=== PATIENT | female | born 1990 | race Caucasian/White ===

== ENCOUNTER 2020-06-15 04:41 | Inpatient (IN) ==
[2020-06-15 06:23] LABS: ABS Eosinophils 0.1 10^3/ul (0-0.6); ABS Monocytes 0.6 10^3/ul (0-0.8); ABS Neutrophils 4.8 10^3/ul (1.5-7.7); Eosinophil % 1.1 %; Hematocrit 40 % (35-47); Hemoglobin 13.8 g/dL (12.0-16.0); Lymphocyte % 27.2 %; Mean Corpuscular HGB Conc 34 g/dL (31-36); Mean Corpuscular Hemoglobin 31 pg (27-31); Mean Corpuscular Volume 89 fL (80-97); Mean Platelet Volume 7.7 fL (7.4-10.4); Platelet Count 316 10^3/uL (150-450); Red Blood Count 4.52 10^6 /uL (3.70-4.87); Red Cell Distribution Width 14 % (10-15); White Blood Count 7.5 10^3/uL (3.5-10.8)
[2020-06-15 06:25] LABS: Urine Appearance Cloudy; Urine Bilirubin Negative (Negative); Urine Blood 2+ (Negative); Urine Color Yellow; Urine Glucose Negative (Negative); Urine Ketones 1+ (Negative); Urine Nitrite Positive (Negative); Urine Protein Negative (Negative); Urine Specific Gravity 1.017 (1.010-1.030); Urine Urobilinogen Negative (Negative)
[2020-06-15 06:37] LABS: ALT 20 U/L (7-52); AST 23 U/L (13-39); Albumin 4.4 g/dL (3.2-5.2); Albumin/Globulin Ratio 1.3 (1-3); Alkaline Phosphatase 53 U/L (34-104); Anion Gap 7 mmol/L (2-11); Blood Urea Nitrogen 15 mg/dL (6-24); CO2 Carbon Dioxide 25 mmol/L (22-32); Chloride 103 mmol/L (101-111); EGFR African American 108.4 (>60); EGFR Non-African American 89.6 (>60); Globulin 3.3 g/dL (2-4); Glucose 128 mg/dL (70-100); Potassium 3.7 mmol/L (3.5-5.0); Sodium 135 mmol/L (135-145); Total Protein 7.7 g/dL (6.4-8.9)
[2020-06-15 06:45] LABS: Acetaminophen < 15 mcg/mL; Alcohol, S < 10 mg/dL (<10); Salicylate < 2.50 mg/dL (<30)
[2020-06-15 06:54] LABS: TSH Ultra Thyroid Stim Horm 2.03 mcIU/mL (0.34-5.60)
[2020-06-15 07:02] LABS: Urine Benzodiazepine Screen None Detected (None Detect); Urine Cannabinoids Screen None Detected (None Detect); Urine Opiates Screen None Detected (None Detect)
[2020-06-15 07:11] LABS: Urine Bacteria Absent (Absent); Urine Red Blood Cell 3+(>10/hpf) (Absent); Urine Squamous Epithelial Cell Present (Absent); Urine White Blood Cell Trace(0-5/hpf) (Absent)
[2020-06-15] MEDS ORDERED: LORazepam 2 mg VIAL 1 ml IM ONE (18:52)
[2020-06-15] MEDS ORDERED: diPHENhydraMINE IV 50 MG/ML 1 ml VIAL (BENADRYL) IM ONE (18:52)
[2020-06-15] MEDS ORDERED: Haloperidol 5 mg/ml SDV IV/IM 5 MG/ML AMP IM ONE (18:52)
[2020-06-15] MEDS ORDERED: Haloperidol 5 mg/ml SDV IV/IM 5 MG/ML AMP ONE (18:57)
[2020-06-15] MEDS ORDERED: diPHENhydraMINE IV 50 MG/ML 1 ml VIAL (BENADRYL) ONE (18:57)
[2020-06-15] MEDS ORDERED: LORazepam 2 mg VIAL 1 ml ONE (18:58)
[2020-06-16] MEDS ORDERED: Influenza VAC *QUAD* 2020-21* 0.5 ML SYRINGE IM ONE (09:00)
[2020-06-17] MEDS: OLANzapine 5 mg TAB*ODT PO SCH (11:21)
[2020-06-17] MEDS: Nicotine PATCH 14 MG/24 HR PATCH TRANSDERM SCH (16:15)
[2020-06-18] MEDS: OLANzapine 5 mg TAB*ODT PO SCH (08:32)
[2020-06-18] MEDS: Nicotine PATCH 14 MG/24 HR PATCH TRANSDERM SCH ×2 (08:33→14:30)
[2020-06-18 08:57] LABS: HDL Cholesterol 43.7 mg/dL
[2020-06-18 11:55] LABS: Hepatitis B Surface Antigen Nonreactive (Nonreactive)
[2020-06-18 12:00] LABS: Hepatitis A Ab IgM Negative (Negative)
[2020-06-18 12:01] LABS: Hepatitis B Core IgM Nonreactive (Nonreactive)
[2020-06-18 12:04] LABS: HIV 4th Generation Nonreactive (Nonreactive)
[2020-06-18 12:37] LABS: Hepatitis C Antibody Reactive (Negative)
[2020-06-18 13:53] LABS: Urine Benzodiazepine Screen None Detected (None Detect); Urine Buprenorphine Screen Presumptive Positive (None Detect); Urine Cannabinoids Screen None Detected (None Detect); Urine Fentanyl Screen None Detected (None Detect); Urine Hydrocodone Screen None Detected (None Detect); Urine Opiates Screen None Detected (None Detect)
[2020-06-19] MEDS: Nicotine PATCH 14 MG/24 HR PATCH TRANSDERM SCH (11:14)
[2020-06-19] MEDS ORDERED: Saline NASAL SPRAY 0.65% BTL BOTH NARES PRN (16:06)
[2020-06-20] MEDS: Nicotine PATCH 14 MG/24 HR PATCH TRANSDERM SCH (07:49)
[2020-06-20] MEDS: Nicotine GUM 2MG FRUIT FLAVOR PO PRN ×3 (09:24→17:00)
[2020-06-20] MEDS: Multivitamins/Minerals TAB PO SCH (12:28)
[2020-06-21] MEDS: Nicotine PATCH 14 MG/24 HR PATCH TRANSDERM SCH (08:33)
[2020-06-21] MEDS: Multivitamins/Minerals TAB PO SCH (08:35)
[2020-06-21] MEDS ORDERED: diPHENhydraMINE IV 50 MG/ML 1 ml VIAL (BENADRYL) IM ONE (12:29)
[2020-06-21] MEDS ORDERED: Haloperidol 5 mg/ml SDV IV/IM 5 MG/ML AMP IM ONE (12:30)
[2020-06-21 13:00] LABS: Chlamydia trachomatis NAA Negative (Negative); Neisseria gonorrhoeae (GC) NAA Negative (Negative)
[2020-06-21] MEDS: Nicotine GUM 2MG FRUIT FLAVOR PO PRN ×2 (17:17→20:55)
[2020-06-21] MEDS: OLANzapine 5 mg TAB*ODT PO SCH (20:55)
[2020-06-22] MEDS: Multivitamins/Minerals TAB PO SCH (08:58)
[2020-06-22] MEDS: Nicotine PATCH 14 MG/24 HR PATCH TRANSDERM SCH (08:58)
[2020-06-22] MEDS: Nicotine GUM 2MG FRUIT FLAVOR PO PRN ×2 (08:59→17:46)
[2020-06-22] MEDS: Al Hydrox/Mg Hydrox/Simet LIQ 30 ML UDC PO PRN (14:55)
[2020-06-22] MEDS: OLANzapine 5 mg TAB*ODT PO SCH (20:25)
[2020-06-23] MEDS: Multivitamins/Minerals TAB PO SCH (09:05)
[2020-06-23] MEDS: Nicotine GUM 2MG FRUIT FLAVOR PO PRN ×3 (09:06→14:37)
[2020-06-23] MEDS: Nicotine PATCH 14 MG/24 HR PATCH TRANSDERM SCH (09:06)
[2020-06-23] MEDS ORDERED: buPROPion SR 100 mg TAB.SR PO ONE (10:59)
[2020-06-23] MEDS: Al Hydrox/Mg Hydrox/Simet LIQ 30 ML UDC PO PRN (14:52)
[2020-06-23] MEDS: OLANzapine 5 mg TAB*ODT PO SCH (20:36)
[2020-06-24] MEDS: Nicotine PATCH 14 MG/24 HR PATCH TRANSDERM SCH (08:10)
[2020-06-24] MEDS: Multivitamins/Minerals TAB PO SCH (08:26)
[2020-06-24] MEDS: Nicotine GUM 2MG FRUIT FLAVOR PO PRN ×3 (11:08→19:10)
[2020-06-24] MEDS: Al Hydrox/Mg Hydrox/Simet LIQ 30 ML UDC PO PRN ×2 (14:37→20:25)
[2020-06-24] MEDS: OLANzapine 5 mg TAB*ODT PO SCH (20:52)
[2020-06-25] MEDS: Multivitamins/Minerals TAB PO SCH (08:37)
[2020-06-25] MEDS: Nicotine PATCH 14 MG/24 HR PATCH TRANSDERM SCH (08:43)
[2020-06-25] MEDS: Nicotine GUM 2MG FRUIT FLAVOR PO PRN ×2 (09:27→21:02)
[2020-06-25] MEDS: Al Hydrox/Mg Hydrox/Simet LIQ 30 ML UDC PO PRN (16:00)
[2020-06-25 19:36] LABS: Urine Benzodiazepine Screen None Detected (None Detect); Urine Buprenorphine Screen Presumptive Positive (None Detect); Urine Cannabinoids Screen None Detected (None Detect); Urine Fentanyl Screen None Detected (None Detect); Urine Hydrocodone Screen None Detected (None Detect); Urine Opiates Screen None Detected (None Detect)
[2020-06-25] MEDS: OLANzapine 5 mg TAB*ODT PO SCH (20:57)
[2020-06-26] MEDS: Multivitamins/Minerals TAB PO SCH (08:20)
[2020-06-26] MEDS: Nicotine GUM 2MG FRUIT FLAVOR PO PRN (08:21)
[2020-06-26] MEDS: Nicotine PATCH 14 MG/24 HR PATCH TRANSDERM SCH (09:59)
[2020-06-26] MEDS: OLANzapine 5 mg TAB*ODT PO SCH (21:44)
[2020-06-27] MEDS: Multivitamins/Minerals TAB PO SCH (07:57)
[2020-06-27] MEDS: Nicotine PATCH 14 MG/24 HR PATCH TRANSDERM SCH (08:31)
[2020-06-27] MEDS: Al Hydrox/Mg Hydrox/Simet LIQ 30 ML UDC PO PRN (11:11)
[2020-06-27] MEDS: Nicotine GUM 2MG FRUIT FLAVOR PO PRN (17:36)
[2020-06-27] MEDS: OLANzapine 5 mg TAB*ODT PO SCH (23:19)
[2020-06-28] MEDS: Nicotine PATCH 14 MG/24 HR PATCH TRANSDERM SCH (07:37)
[2020-06-28] MEDS: Multivitamins/Minerals TAB PO SCH (07:38)
[2020-06-28] MEDS: Nicotine GUM 2MG FRUIT FLAVOR PO PRN ×2 (15:10→18:43)
[2020-06-29] MEDS: Multivitamins/Minerals TAB PO SCH (08:13)
[2020-06-29] MEDS: Nicotine PATCH 14 MG/24 HR PATCH TRANSDERM SCH (08:14)
[2020-06-30] MEDS: Multivitamins/Minerals TAB PO SCH (08:02)
[2020-06-30] MEDS: Nicotine PATCH 14 MG/24 HR PATCH TRANSDERM SCH ×2 (08:03→13:09)
[2020-06-30] MEDS: Nicotine GUM 2MG FRUIT FLAVOR PO PRN ×2 (09:43→22:48)
[2020-07-01] MEDS: Nicotine PATCH 14 MG/24 HR PATCH TRANSDERM SCH (08:30)
[2020-07-01] MEDS: Multivitamins/Minerals TAB PO SCH (09:15)
[2020-07-02] MEDS: Multivitamins/Minerals TAB PO SCH (08:36)
[2020-07-02] MEDS: Nicotine PATCH 14 MG/24 HR PATCH TRANSDERM SCH (08:36)
[2020-07-02] MEDS: Nicotine GUM 2MG FRUIT FLAVOR PO PRN ×2 (13:13→18:07)
[2020-07-03] MEDS: Nicotine PATCH 14 MG/24 HR PATCH TRANSDERM SCH ×2 (08:00→11:58)
[2020-07-03] MEDS: Multivitamins/Minerals TAB PO SCH (08:01)
[2020-07-03] MEDS: Nicotine GUM 2MG FRUIT FLAVOR PO PRN (22:42)
[2020-07-04] MEDS: Nicotine PATCH 14 MG/24 HR PATCH TRANSDERM SCH (09:31)
[2020-07-04] MEDS: Multivitamins/Minerals TAB PO SCH (09:59)
[2020-07-04 21:23] VITALS: BP 114/66
[2020-07-05] MEDS: Multivitamins/Minerals TAB PO SCH (08:20)
[2020-07-05] MEDS: Nicotine PATCH 14 MG/24 HR PATCH TRANSDERM SCH (08:20)
== END 2020-07-05 11:30 | disposition home or self-care (01) | DRG 774 ==
LOC: ED 04:41 → BSU 12:23
PROVIDERS: ADMIT Psychiatry & Neurology Psychiatry; ATTEND Psychiatry & Neurology Psychiatry

== ENCOUNTER 2021-04-30 11:55 | Inpatient (IN) ==
[2021-04-30 16:51] LABS: ABS Basophils 0.1 10^3/ul (0-0.2); ABS Eosinophils 0.1 10^3/ul (0-0.6); ABS Monocytes 0.6 10^3/ul (0-0.8); ABS Neutrophils 3.5 10^3/ul (1.5-7.7); Eosinophil % 1.8 %; Hematocrit 39 % (35-47); Hemoglobin 13.3 g/dL (12.0-16.0); Lymphocyte % 41.6 %; Mean Corpuscular HGB Conc 34 g/dL (31-36); Mean Corpuscular Hemoglobin 30 pg (27-31); Mean Corpuscular Volume 88 fL (80-97); Mean Platelet Volume 7.2 fL (7.4-10.4); Nucleated Red Blood Cells % 0.1; Platelet Count 384 10^3/uL (150-450); Red Blood Count 4.43 10^6 /uL (3.70-4.87); Red Cell Distribution Width 15 % (10-15); White Blood Count 7.3 10^3/uL (3.5-10.8)
[2021-04-30 17:08] LABS: ALT 33 U/L (7-52); AST 69 U/L (13-39); Albumin 4.3 g/dL (3.2-5.2); Albumin/Globulin Ratio 1.2 (1-3); Alkaline Phosphatase 67 U/L (35-149); Anion Gap 4 mmol/L (2-11); Blood Urea Nitrogen 8 mg/dL (6-24); CO2 Carbon Dioxide 30 mmol/L (22-32); Calcium 9.6 mg/dL (8.6-10.3); Chloride 101 mmol/L (101-111); EGFR African American 94.5 (>60); EGFR Non-African American 78.1 (>60); Globulin 3.5 g/dL (2-4); Glucose 90 mg/dL (70-100); Potassium 3.7 mmol/L (3.5-5.0); Sodium 135 mmol/L (135-145); Total Protein 7.8 g/dL (6.4-8.9)
[2021-04-30 17:14] LABS: HCG Pregnancy < 0.60 mIU/mL
[2021-04-30] MEDS ORDERED: LORazepam 2 mg VIAL 1 ml ONE (17:33)
[2021-04-30] MEDS ORDERED: LORazepam 2 mg VIAL 1 ml IM ONE (17:34)
[2021-04-30] MEDS ORDERED: diPHENhydraMINE IV 50 MG/ML 1 ml VIAL (BENADRYL) IM ONE (17:34)
[2021-04-30] MEDS ORDERED: Haloperidol 5 mg/ml SDV IV/IM 5 MG/ML AMP IM ONE (17:34)
[2021-04-30] MEDS ORDERED: Lorazepam PYXIS KEY PRN (17:34)
[2021-04-30 18:06] LABS: Acetaminophen < 15 mcg/mL; Alcohol, S < 13 mg/dL (<13); Salicylate < 2.50 mg/dL (<30)
[2021-04-30 18:21] LABS: TSH Ultra Thyroid Stim Horm 3.81 mcIU/mL (0.34-5.60)
[2021-04-30] MEDS ORDERED: Al Hydrox/Mg Hydrox/Simet LIQ 30 ML UDC PO PRN (18:27)
[2021-04-30 22:07] VITALS: BP 96/68
[2021-04-30] MEDS ORDERED: Nicotine GUM 2MG FRUIT FLAVOR PO PRN (23:00)
[2021-05-01 08:40] LABS: HDL Cholesterol 40.9 mg/dL
[2021-05-01] MEDS: Nicotine PATCH 21 MG/24 HR PATCH TRANSDERM SCH (09:03)
[2021-05-01] MEDS: Vitamin THERAPEUTIC TAB PO SCH (09:04)
[2021-05-02] MEDS: Vitamin THERAPEUTIC TAB PO SCH (07:29)
[2021-05-02] MEDS: Nicotine PATCH 21 MG/24 HR PATCH TRANSDERM SCH (10:54)
== END 2021-05-02 12:21 | disposition home or self-care (01) | DRG 774 ==
LOC: ED 11:55 → BSU 18:27
PROVIDERS: ADMIT Psychiatry & Neurology Psychiatry; ATTEND Psychiatry & Neurology Psychiatry